=== PATIENT | female | born 1980 | race Caucasian/White ===

== ENCOUNTER 2016-10-15 22:07 | Emergency (ER) | payer OTHER ==
[~2016-10-15] VITALS: Ht 165.1 cm; Wt 66.4 kg
[2016-10-15] MEDS ORDERED: FLEXERIL5 MG PO (23:02)
[2016-10-15] MEDS ORDERED: NORCO 5/3251 TABLET PO (23:02)
[2016-10-15] MEDS ORDERED: NAPROSYN500 MG PO (23:02)
[2016-10-15 23:12] VITALS: BP 138/93
== END 2016-10-15 23:24 | disposition home or self-care (01) ==
LOC: EME 22:07 → EXP 22:07
DX: K08.89 Other specified disorders of teeth and supporting structures (principal); M26.602 Left temporomandibular joint disorder, unspecified; K03.81 Cracked tooth; R11.0 Nausea; F17.200 Nicotine dependence, unspecified, uncomplicated
CPT/HCPCS: 99281; 99284